=== PATIENT | female | born 1965 | race Caucasian/White ===

== ENCOUNTER 2023-11-16 15:54 | Emergency (ER) | payer MEDICARE ==
[~2023-11-16] VITALS: Ht 167.6 cm; Wt 95.9 kg
[2023-11-16] MEDS ORDERED: Ondansetron 4 MG/2 ML VIAL IV ONE (16:00)
[2023-11-16] MEDS ORDERED: fentaNYL 50 MCG/ML 2 ML VIAL IV ONE (16:00)
[2023-11-16 16:12] LABS: BASO % 0.2 % (0.0-2.0); EOS % 0.6 % (0.0-4.0); GRAN # 3.1 K/mm3 (1.4-6.5); GRAN % 67.1 % (42.2-75.2); HEMATOCRIT 35.7 % (37.0-47.0); HEMOGLOBIN 11.9 g/dl (12.5-16.0); LYMPH # 1.1 K/mm3 (1.2-3.4); LYMPH % 24.2 % (20.0-51.0); MEAN CELL VOLUME 100 fl (80.0-100.0); MEAN CORPUSCULAR HEMOGLOBIN 33 pg (27-31); MEAN CORPUSCULAR HGB CONC 33 g/dl (33.0-37.0); MEAN PLATELET VOLUME 9.6 fl (7.4-10.4); MONO # 0.4 K/mm3 (0.1-0.6); MONO % 7.7 % (1.7-9.3); PLATELET COUNT 78 K/mm3 (130-400); RED BLOOD COUNT 3.58 M/mm3 (4.10-5.30); REDCELL DISTRIBUTION WIDTH-CV 14.7 % (11.5-14.5)
[2023-11-16] MEDS ORDERED: ceFAZolin 1 G in Water For Injection,Sterile 10 ML IV ONE (16:15)
[2023-11-16 16:17] LABS: INR 1.2 (0.8-3.0); PROTHROMBIN TIME 13.4 SECONDS (9.7-12.8)
[2023-11-16] MEDS ORDERED: Iohexol 300 - 100 ML VIAL IV ONE (16:29)
[2023-11-16] MEDS ORDERED: NS 100 ML IV SCH (16:30)
[2023-11-16 16:43] LABS: ALBUMIN 3.4 g/dL (3.5-5.0); BILIRUBIN,TOTAL 0.6 mg/dL (0.2-1.2); CALCIUM 9.3 mg/dL (8.4-10.2); CREATININE, serum 0.82 mg/dL (0.57-1.11); POTASSIUM 3.4 mEq/L (3.5-4.5); TOTAL PROTEIN 6.4 g/dl (6.2-8.1)
[2023-11-16 18:30] VITALS: BP 145/77; PULSE 77
[2023-11-16] MEDS ORDERED: Home HYDROcodone/Acetaminophen 7.5/325 MG #4 TABS/PACK PO ONE (18:30)
== END 2023-11-16 18:34 | disposition home or self-care (01) ==
LOC: COL.ER 15:54
PROVIDERS: Emergency Medicine
DX: S40.021A Contusion of right upper arm, initial encounter (principal); M54.6 Pain in thoracic spine; S80.211A Abrasion, right knee, initial encounter; S90.512A Abrasion, left ankle, initial encounter; Z23 Encounter for immunization; V86.15XA Passenger of 3- or 4- wheeled all-terrain vehicle (ATV) injured in traffic accident, initial encounter; Y92.410 Unspecified street and highway as the place of occurrence of the external cause
CPT/HCPCS: J0690; J2405; J3010; Q9967